=== PATIENT | male | born 1960 | race Hispanic/Latino ===

== ENCOUNTER 2018-07-08 16:56 | Emergency (ER) | payer SELFPAY ==
[2018-07-08 17:31] LABS: #Eosinphils 0.3 thou/uL (0.0-0.7); #Lymphocytes 1.2 thou/uL (1.20-3.40); #Monocytes 0.8 thou/uL (0.11-0.59); #Neutrophils 4.5 thou/uL (1.40-6.50); %Basophils 0.2 % (0.0-1.0); %Eosinophils 3.8 % (0.0-10.0); %Lymphocytes 17.8 % (21.0-51.0); %Monocytes 11.2 % (0.0-10.0); Hemoglobin 14.7 g/dL (14.0-18.0); Mean Corpuscular HGB CONC 33.5 g/dL (32.0-36.0); Mean Corpuscular Hemoglobin 29.3 pg (27.0-31.0); Mean Corpuscular Volume 87.5 fL (78.0-98.0); Mean Platelet Volume 8.8 fL (7.4-10.4); Platelet Count 173 thou/uL (130-400); RBC Distribution Width 11.5 % (11.5-14.5); White Blood Cell (WBC) Count 6.7 thou/uL (4.8-10.8)
[2018-07-08 17:34] LABS: Bilirubin Negative (Negative); Blood, Urine Small (Negative); Glucose, Urine (Dipstick) 500 mg/dL (Negative); Leukocyte Negative (Negative); Nitrite Negative (Negative); Protein, Urine (Dipstick) 100 mg/dL (Neg-Trace); Urobilinogen 0.2 mg/dL (0.2-1.0)
[2018-07-08 17:41] LABS: Clarity CLEAR (Clear)
[2018-07-08 17:42] LABS: Specific Gravity, Urine 1.028 (1.002-1.036)
[2018-07-08 17:51] LABS: ALT (SGPT) 20 U/L (8-55); AST (SGOT) 15 U/L (5-34); Alkaline Phosphatase 101 U/L (40-150); Anion Gap 11 mmol/L (10-20); BUN (Urea Nitrogen) 28 mg/dL (8.4-25.7); Bilirubin, Total 0.4 mg/dL (0.2-1.2); Calc. Creatinine Clearance 0 mL/min (70-130); Calcium 9.5 mg/dL (7.8-10.44); Carbon Dioxide 29 mmol/L (22-29); Chloride 99 mmol/L (98-107); Estimated GFR-MDRD 72; Globulin 3.8 g/dL (2.4-3.5); Glucose 305 mg/dL (70-105); Potassium 4.3 mmol/L (3.5-5.1); Protein, Total 7.8 g/dL (6.0-8.3); Sodium 135 mmol/L (136-145)
[2018-07-08 17:55] LABS: Bacteria/HPF Rare-Few HPF (None Seen); Hyaline Casts/LPF NONE SEEN LPF (0-3 Hyaline); RBC/HPF 0-3 HPF (0-3); Squamous Epithelial 0-3 HPF (0-3); WBC/HPF None Seen HPF (0-3)
[2018-07-08] MEDS ORDERED: Mag-Al 1200 mg/1200 mg/30 ML UDCUP ONE (20:45)
[2018-07-08] MEDS ORDERED: Lidocaine Viscous Sol 2% 15 ml UD Cup ONE (20:45)
--- NOTE | 2018-07-08 21:26 | RAD ---
CHEST TWO VIEWS: 07/08/18 HISTORY: Cough. COMPARISON: None. FINDINGS: Normal cardiac silhouette. Lungs and pleural spaces are clear. No pneumothorax or osseous abnormaliti es. IMPRESSION: No acute cardiopulmonary process. POS: [facility]
== END 2018-07-08 21:30 | disposition home or self-care (01) ==
LOC: ERS 16:56
DX: K52.9 Noninfective gastroenteritis and colitis, unspecified (principal); J20.9 Acute bronchitis, unspecified; E11.65 Type 2 diabetes mellitus with hyperglycemia; E78.5 Hyperlipidemia, unspecified; I10 Essential (primary) hypertension; Z79.899 Other long term (current) drug therapy; Z79.84 Long term (current) use of oral hypoglycemic drugs
CPT/HCPCS: 36415; 71046; 80053; 81003; 81015; 82010; 83690; 84484; 85025; 87804; 93005

== ENCOUNTER 2019-02-04 14:38 | Inpatient (IN) | payer SELFPAY ==
[2019-02-04 16:18] LABS: #Eosinphils 0.2 thou/uL (0.0-0.7); #Lymphocytes 1.9 thou/uL (1.20-3.40); #Monocytes 0.3 thou/uL (0.11-0.59); #Neutrophils 1.7 thou/uL (1.40-6.50); %Basophils 0.6 % (0.0-1.0); %Eosinophils 5.3 % (0.0-10.0); %Lymphocytes 46.4 % (21.0-51.0); %Neutrophils 40.8 % (42.0-75.0); Hemoglobin 14.4 g/dL (14.0-18.0); Mean Corpuscular HGB CONC 35.1 g/dL (32.0-36.0); Mean Corpuscular Hemoglobin 29.2 pg (27.0-31.0); Mean Corpuscular Volume 83.1 fL (78.0-98.0); Mean Platelet Volume 8.8 fL (7.4-10.4); Platelet Count 157 thou/uL (130-400); RBC Distribution Width 11.5 % (11.5-14.5); Red Blood Cell (RBC) Count 4.93 mill/uL (4.70-6.10); White Blood Cell (WBC) Count 4.1 thou/uL (4.8-10.8)
[2019-02-04 16:38] LABS: ALT (SGPT) 8 U/L (8-55); AST (SGOT) 10 U/L (5-34); Alkaline Phosphatase 80 U/L (40-110); Anion Gap 12 mmol/L (10-20); BUN (Urea Nitrogen) 14 mg/dL (8.4-25.7); Bilirubin, Total 0.4 mg/dL (0.2-1.2); Calc. Creatinine Clearance 0 mL/min (70-130); Calcium 9.1 mg/dL (7.8-10.44); Carbon Dioxide 24 mmol/L (22-29); Chloride 99 mmol/L (98-107); Estimated GFR-MDRD 79; Globulin 3.1 g/dL (2.4-3.5); Glucose 237 mg/dL (70-105); Potassium 3.9 mmol/L (3.5-5.1); Protein, Total 7.1 g/dL (6.0-8.3); Sodium 131 mmol/L (136-145)
[2019-02-04] MEDS ORDERED: Acetaminophen 500 MG TAB ONE (19:06)
--- NOTE | 2019-02-04 19:06 | CT ---
CT BRAIN NONCONTRAST: DATE: 02/04/2019 HISTORY: 58-year-old male with headache FINDINGS: There is no evidence of acute intra-axial or extra-axial hemorrhage. There is no midline shift or any other mass effect. There is no extra-axial fluid collection. There is no evidence of obstructive hydrocephalus. Calvarium is intact. There is an approximately 2.5 x 0.7 cm well-circumscribed, very l ow attenuation lesion in the right brain parenchyma that involves the caudate head and adjacent portions of right basal ganglia and anterior limb of right internal capsule. There is associated ex v acuo dilation of the frontal horn of the right lateral ventricle. The sphenoid and frontal sinuses are grossly clear. Bilateral tympanomastoid cavities are grossly clear. IMPRESSION: 1. No acute intracranial findings. 2. 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
[2019-02-04] MEDS ORDERED: Aspirin 325 MG TAB ONE (20:25)
[2019-02-04] MEDS ORDERED: Labetalol HCl 100 MG/20 ML VIAL ONE (20:25)
[2019-02-04 20:33] LABS: Hemoglobin A1c 11.1 % (4.0-6.0)
--- NOTE | 2019-02-04 21:23 | RAD ---
RADIOGRAPH CHEST 1 VIEW: DATE: 02/04/2019 HISTORY: 58-year-old male with hypertension and hyperglycemia FINDINGS: There are no airspace densities, pulmonary edema, pneumothorax, or cardiomegaly. The lateral costophr enic angles are sharp. No mediastinal widening. IMPRESSION: No acute cardiopulmonary findings.
[2019-02-05 00:27] LABS: Troponin I Less than 0.010 ng/mL (< 0.028)
[2019-02-05] MEDS ORDERED: Ondansetron ODT 4 MG TAB PO PRN (02:16)
[2019-02-05] MEDS ORDERED: Acetaminophen 325 MG TAB PO PRN (02:16)
[2019-02-05] MEDS ORDERED: Ondansetron PF 4 MG/2 ML Vial IVP PRN (02:16)
[2019-02-05] MEDS ORDERED: Acetaminophen 650 MG Suppository PR PRN (02:16)
[2019-02-05 03:47] VITALS: BMI 25.4
[2019-02-05] MEDS ORDERED: hydrALAZINE 20 MG/ML VIAL SLOW IVP PRN (04:23)
[2019-02-05] MEDS ORDERED: HumaLOG 300 UNITS/3 ML VIAL SC PRN (04:24)
[2019-02-05] MEDS ORDERED: Dextrose 5% in Water 1,000 ML IV PRN (04:24)
[2019-02-05] MEDS ORDERED: Dextrose 50% Abboject 50 ML SYRINGE SLOW IVP PRN (04:24)
--- NOTE | 2019-02-05 05:13 | HP ---
PRIMARY CARE DOCTOR: The patient has no PCP. CODE STATUS: Full code. TIME OF EVALUATION: 12:20 a.m. CHIEF COMPLAINT: High blood pressure. HISTORY OF PRESENT ILLNESS: This is a 58-year-old male patient, past medical history of diabetes, hyperlipidemia, hypertension, came to the hospital after having severe sudden onset universal headache, associated with very high blood sugar. As noted, the patient has a history of headache that has been present for the past year with no significant resolution. However, today the pain was worse and very severe. No clear triggers, no alleviating factors. Symptoms lasted for a day. REVIEW OF SYSTEMS: CONSTITUTIONAL: No fever, no chills. RESPIRATORY: No cough or sputum production. CARDIOVASCULAR: No chest pain or shortness of breath. MUSCULOSKELETAL: Normal range of motion. SKIN: No rash. NEUROLOGICAL: The patient has headache, very serve as described in HPI. GENITOURINARY: No burning on urination. GI: No abdominal pain. No nausea. No vomiting. ENDOCRINE: The patient has hyperglycemia. All other systems were reviewed and negative except for the findings mentioned above. PAST MEDICAL HISTORY: The patient has diabetes, hyperlipidemia, hypertension. PAST SURGICAL HISTORY: Appendectomy. PSYCHIATRIC HISTORY: No previous psych history. SOCIAL HISTORY: No alcohol, no drugs, no smoking history. FAMILY HISTORY: Reviewed, noncontributory for current presentation. KNOWN ALLERGIES: No known drug allergies. REPORTED MEDICATIONS: 1. Lisinopril. 2. Atorvastatin. 3. Metformin. PHYSICAL EXAMINATION: VITAL SIGNS: On presentation, blood pressure 204/135 with heart rate 65, respiratory rate was 18, temperature 98.6, oxygen saturation was 100% on room air. Blood pressure has been changing over initial treatment with the systolic dropping from the 170s to 160s. GENERAL APPEARANCE: The patient is alert, oriented, seems to be mildly confused to establish a complex conversation. HEENT: Eyes, normal conjunctivae. Moist oral mucosa. Anicteric. No JVD. RESPIRATORY: Bilateral air entry. No rales. No wheezes. Symmetric expansion. CARDIOVASCULAR: Normal rate, regular rhythm. No murmurs. No gallop. No edema. The patient is hypertensive. ABDOMEN: Soft, normal bowel sounds. MUSCULOSKELETAL: Baseline range of motion and strength. SKIN: Warm, intact. No pallor. No rash. No redness. Capillary refill seems to be intact. NEURO: No evidence of any new focal weakness. Cranial nerves seem to be intact. PSYCH: The patient is in good mood. No anxiety. The patient seems to be slightly confused for establishing a coherent conversation. IMAGING: Brain CT was done. The patient has no acute intracranial findings, evidence for infarction in right corpus striatum, lenticulostriate branch, tentory of right middle cerebral artery. Chest x-ray, no acute cardiopulmonary findings. LABORATORY DATA: Reviewed. The patient has white count 4.1, hemoglobin 14.4, hematocrit 40.9, platelet count 157. Chemistry; sodium 131, potassium 3.9, chloride 99, anion gap was 12 with BUN 14, GFR 79, glucose 237. Hemoglobin A1c was 11.1, calcium 9.1, total bilirubin 0.4. LFTs were negative. Troponin was negative. Serum total protein 7.1, albumin 4.0, globulin 3.1. ASSESSMENT AND PLAN: The patient will be placed in the hospital with following medical problems. 1. Hypertensive urgency. The patient presented with very high blood pressure, has received treatment in the ER with some improvement and then the blood pressure has rebounded back up. We will place the patient on blood pressure medication at this time. He does not recall what medication he was taking. We will start him on lisinopril, Coreg, hydralazine p.r.n. for optimal control. If not improving, medications will need to be adjusted. 2. Uncontrolled diabetes. The patient presented with blood sugar in the range of 200, the last one was 208. We will place the patient on sliding scale for optimal control and low-carb diet. 3. DVT prophylaxis. 4. Acute headache, could be secondary to hypertension. We will control the blood pressure and monitor the patient. There is no evidence of any focal weakness at this point. If any concern remains about any neurological findings, the patient can be reassessed and stroke protocol to be started. Job ID: [id number]
[2019-02-05 05:46] LABS: #Eosinphils 0.3 thou/uL (0.0-0.7); #Lymphocytes 2.2 thou/uL (1.20-3.40); #Monocytes 0.5 thou/uL (0.11-0.59); #Neutrophils 1.9 thou/uL (1.40-6.50); %Basophils 0.6 % (0.0-1.0); %Eosinophils 6.6 % (0.0-10.0); %Lymphocytes 45.5 % (21.0-51.0); %Monocytes 9.3 % (0.0-10.0); Hemoglobin 13.7 g/dL (14.0-18.0); Mean Corpuscular Volume 82.5 fL (78.0-98.0); Mean Platelet Volume 9.2 fL (7.4-10.4); Platelet Count 161 thou/uL (130-400); RBC Distribution Width 11.4 % (11.5-14.5); Red Blood Cell (RBC) Count 4.91 mill/uL (4.70-6.10); White Blood Cell (WBC) Count 4.9 thou/uL (4.8-10.8)
[2019-02-05 06:03] LABS: Anion Gap 11 mmol/L (10-20); BUN (Urea Nitrogen) 14 mg/dL (8.4-25.7); Calc. Creatinine Clearance 86 mL/min (70-130); Calcium 8.9 mg/dL (7.8-10.44); Carbon Dioxide 26 mmol/L (22-29); Chloride 102 mmol/L (98-107); Estimated GFR-MDRD 89; Glucose 226 mg/dL (70-105); Potassium 3.8 mmol/L (3.5-5.1); Sodium 135 mmol/L (136-145)
[2019-02-05 06:12] LABS: Troponin I Less than 0.010 ng/mL (< 0.028)
[2019-02-05] MEDS ORDERED: Carvedilol 3.125 MG TAB PO SCH (08:00)
[2019-02-05 08:52] VITALS: BP 163/65; TEMP 98.6
[2019-02-05] MEDS ORDERED: Enoxaparin Sodium 40 MG/0.4 ML SYRINGE SC SCH (09:00)
[2019-02-05] MEDS ORDERED: Lisinopril 10 MG TAB PO SCH (09:00)
--- NOTE | 2019-02-05 12:14 | DIS ---
DATE OF ADMISSION: 02/04/2019 DATE OF DISCHARGE: 02/05/2019 PRIMARY CARE PHYSICIAN: [facility]. CHIEF COMPLAINT/REASON FOR ADMISSION: "My head hurts." HISTORY OF PRESENT ILLNESS: Mr. Mcbride is a pleasant 58-year-old gentleman with a medical history of hypertension, diabetes, and dyslipidemia, presenting to the hospital with sudden severe headache diffusely, also associated with elevated blood pressure, systolics in the 200s. Placed in the hospital on observation status. HOSPITAL COURSE: Afterload reduction offered with interval improvement in symptoms. Brain imaging included CT head, no acute intracranial findings. Noted previous, no acute intracranial findings. Note was made of old infarction of right corpus striatum (lenticulostriate branch territory of right middle cerebral artery). Likewise, a chest x-ray performed on admission, which was negative. Laboratory evaluation reviewed and unremarkable. Cardiac biomarkers negative. Blood sugars have ranged from 206 to 226. In speaking with the patient this morning, he has not been taking his usual lisinopril at home. He has been seen previously at the [facility], but does not return regularly for followups. Discussed the importance of routine followup, discussed dose titration of antihypertensive agents, as well as low-salt diet/diabetic diet. His neurologic exam is normal. His headache has entirely resolved. His blood pressure this morning is running 150s to 160s systolics with diastolics in the 70s. PHYSICAL EXAMINATION: LUNGS: Clear to auscultation bilaterally. HEART: Regular rate and rhythm. ABDOMEN: Soft and nontender. NEUROLOGIC: No focal deficit. He appears stable for transition to home. MEDICATIONS ON DISCHARGE: 1. Prescriptions provided for Coreg 3.125 mg p.o. twice daily, dispensing 60 tablets. 2. Lisinopril/hydrochlorothiazide 20/25 one p.o. daily, dispensing 30 tablets. 3. Metformin 500 mg p.o. b.i.d., dispensing 60 tablets. 4. At home, he does have atorvastatin, he is unsure of the usual dosing, but does still have a prescription for this. DIET: Diabetic/low-salt. ACTIVITY: As tolerated. FOLLOWUP: Follow up with [facility]. CONDITION ON DISCHARGE: Improved. Job ID: [id number]
[2019-02-05] MEDS ORDERED: FLU VACC QS2019-20(6MOS UP)/PF 60 MCG/0.5 ML SYRINGE IM ONE (21:00)
--- NOTE | 2019-02-07 12:11 | EKG ---
Test Reason : Blood Pressure : / mmHG Vent. Rate : 057 BPM Atrial Rate : 057 BPM P-R Int : 144 ms QRS Dur : 084 ms QT Int : 402 ms P-R-T Axes : 036 -14 001 degrees QTc Int : 391 ms Sinus bradycardia with marked sinus arrhythmia Otherwise normal ECG Confirmed by DILLON FAIRBANKS ([id number]), editor managing director RENETTA HOLLY ([id number] on 02/07/2019 12:10:41 PM Referred By: YAMILE FAIRBANKS Confirmed By:DILLON FAIRBANKS
== END 2019-02-05 10:30 | disposition home or self-care (01) | DRG 305 ==
LOC: ERS 14:38 → 2SE 22:40
PROVIDERS: ADMIT Hospitalist; ATTEND Hospitalist
PROC: 3E02340 Introduction of Influenza Vaccine into Muscle, Percutaneous Approach (ICD-10-PCS; principal; 2019-02-04)
PROC: 3E0234Z Introduction of Serum, Toxoid and Vaccine into Muscle, Percutaneous Approach (ICD-10-PCS; 2019-02-04)
DX: I16.0 Hypertensive urgency (principal); I10 Essential (primary) hypertension; E11.65 Type 2 diabetes mellitus with hyperglycemia; E78.5 Hyperlipidemia, unspecified; Z90.49 Acquired absence of other specified parts of digestive tract; Z79.84 Long term (current) use of oral hypoglycemic drugs; Z79.899 Other long term (current) drug therapy; Z23 Encounter for immunization
CPT/HCPCS: 36415; 36416; 70450; 71045; 80048; 80053; 83036; 84484; 85025; 93005; 96374; J1650

== ENCOUNTER 2019-11-13 11:57 | Emergency (ER) | payer SELFPAY ==
[2019-11-13] MEDS ORDERED: Fluorescein Opthalmic Strip ONE (12:24)
[2019-11-13] MEDS ORDERED: Proparacaine 0.5% Opth 15 ML BOT ONE (12:24)
[2019-11-13] MEDS ORDERED: Lidocaine Viscous Sol 2% 15 ml UD Cup ONE (12:31)
[2019-11-13] MEDS ORDERED: Mag-Al 1200 mg/1200 mg/30 ML UDCUP ONE (12:31)
[2019-11-13 12:46] LABS: #Eosinphils 0.2 thou/uL (0.0-0.7); #Lymphocytes 1.9 thou/uL (1.20-3.40); #Monocytes 0.4 thou/uL (0.11-0.59); #Neutrophils 2.8 thou/uL (1.40-6.50); %Basophils 0.2 % (0.0-1.0); %Eosinophils 4.6 % (0.0-10.0); %Lymphocytes 35.1 % (21.0-51.0); %Monocytes 7.5 % (0.0-10.0); %Neutrophils 52.6 % (42.0-75.0); Hemoglobin 13.5 g/dL (14.0-18.0); Mean Corpuscular HGB CONC 34.2 g/dL (32.0-36.0); Mean Corpuscular Hemoglobin 28.5 pg (27.0-31.0); Mean Corpuscular Volume 83.3 fL (78.0-98.0); Platelet Count 167 thou/uL (130-400); RBC Distribution Width 11.6 % (11.5-14.5); Red Blood Cell (RBC) Count 4.75 mill/uL (4.70-6.10); White Blood Cell (WBC) Count 5.3 thou/uL (4.8-10.8)
--- NOTE | 2019-11-13 13:03 | RAD ---
PORTABLE CHEST 1 VIEW: Date: 11/13/2019 Time: 1258 hours HISTORY: Nausea, vomiting, and abdominal pain. COMPARISON: 02/04/2019. FINDINGS: The heart size is normal. The lungs are well expanded without focal areas of consolidation, pneumotho races, or pleural effusions. IMPRESSION: No radiographic evidence of acute cardiopulmonary process. POS: [facility]
[2019-11-13 13:20] LABS: ALT (SGPT) 14 U/L (8-55); AST (SGOT) 12 U/L (5-34); Albumin 4.4 g/dL (3.5-5.0); Alkaline Phosphatase 87 U/L (40-110); Anion Gap 12 mmol/L (10-20); BUN (Urea Nitrogen) 15 mg/dL (8.4-25.7); Bilirubin, Total 0.5 mg/dL (0.2-1.2); CK (CPK) 53 U/L (30-200); Calc. Creatinine Clearance 0 mL/min (70-130); Calcium 9.6 mg/dL (7.8-10.44); Carbon Dioxide 29 mmol/L (22-29); Chloride 99 mmol/L (98-107); Estimated GFR-MDRD 70; Globulin 3.2 g/dL (2.4-3.5); Glucose 159 mg/dL (70-105); Lipase 16 U/L (8-78); Potassium 4.7 mmol/L (3.5-5.1); Protein, Total 7.6 g/dL (6.0-8.3); Sodium 135 mmol/L (136-145)
[2019-11-13 13:34] LABS: Bacteria/HPF None Seen HPF (None Seen); Bilirubin Negative (Negative); Clarity Clear (Clear); Glucose, Urine (Dipstick) Normal (Negative); Ketone, Urine Negative (Negative); Leukocyte Negative Leu/uL (Negative); Nitrite Negative (Negative); Protein, Urine (Dipstick) 300 mg/dL (Neg-Trace); Specific Gravity, Urine 1.016 (1.002-1.036); Squamous Epithelial None Seen HPF (0-3); Urobilinogen Normal mg/dL (Less than 2); WBC/HPF 0-3 HPF (0-3); pH, Urine 8.5 (5.0-9.0)
[2019-11-13 13:36] LABS: Blood, Urine Trace (Negative)
--- NOTE | 2019-11-13 14:20 | CT ---
CT ABDOMEN AND PELVIS WITH IV CONTRAST: 11/13/19 Oral contrast was not administered. INDICATIONS: Abdominal pain. FINDINGS: Lung bases clear. Liver, spleen, and pancreas unremarkable. Stomach and duodenum unremarkable. Adrenal glands normal. Kidneys unremarkable. No evidence of urinary calculus or hydronephrosis. Small bowel loops show nonspecific distention without dilatation. The appendix is not identified. No evidence of appendicitis. Prominent stool throughout the colon. The aorta is normal caliber with atherosclerotic change. No evidence of mass or adenopathy. No free fluid. Images through the pelvis show unremarkable urinary bladder. Mild prostatic hypertrophy. Osseous stru ctures unremarkable. IMPRESSION: No acute process identified. POS: [facility]
[2019-11-13] MEDS ORDERED: Iopamidol 370 76% 100 ML VIAL ONE (14:33)
== END 2019-11-13 15:07 | disposition home or self-care (01) ==
LOC: ERS 11:57
DX: R10.9 Unspecified abdominal pain (principal); H53.8 Other visual disturbances; E11.9 Type 2 diabetes mellitus without complications; E78.5 Hyperlipidemia, unspecified; I10 Essential (primary) hypertension; Z79.84 Long term (current) use of oral hypoglycemic drugs; Z79.899 Other long term (current) drug therapy
CPT/HCPCS: 36416; 71045; 74177; 80053; 81003; 81015; 82550; 83690; 84484; 85025; 93005; Q9967